=== PATIENT | female | born 1985 ===

== ENCOUNTER → 2019-05-07 | Outpatient (REF) ==
--- NOTE | 2019-05-07 11:50 | RADIOLOGY IMAGING REPORT ---
FACILITY: [facility] PATIENT NAME: Nelly Magaña : 1985 MR: [id number] V: [id number] EXAM DATE: ORDERING PHYSICIAN: MARY LOU EPPS TECHNOLOGIST: Location: [facility] Patient: Nelly Magaña : 1985 Visit/Account:[id number] Date of Sevice: 05/07/2019 LIVER HISTORY: Elevated LFTs and alkaline phosphatase COMPARISON: None. FINDINGS: Gallbladder: Surgically absent Liver: Liver is borderline enlarged. There is increased echogenicity throughout the liver which can be seen with fatty infiltration or other infiltrative process. Discrete mass is not demonstrated. T he portal vein is patent Common duct: Normal, 3.2 mm diameter. Pancreas: Partially obscured by bowel, visualized aspects unremarkable. Right kidney: Right kidney appears unremarkable measuring 11.4 cm in length Upper abdominal aorta and IVC: Patent. Ascites: None visualized. IMPRESSION: Borderline hepatomegaly with increased echogenicity throughout liver which can be seen with fatty inf iltration or other infiltrative process Post surgical changes from a prior cholecystectomy Report Dictated By: Carmelita Rain MD at 05/07/2019 11:43 AM Report E-Signed By: Carmelita Rain MD at 05/07/2019 11:44 AM WSN:AMI
== END ==
LOC: US 08:01
PROVIDERS: ATTEND Nurse Practitioner
DX: R16.0 Hepatomegaly, not elsewhere classified (principal); Z90.49 Acquired absence of other specified parts of digestive tract
CPT/HCPCS: 76705